=== PATIENT | female | born 1985 | race Caucasian/White ===

== ENCOUNTER → 2017-06-06 | Outpatient (CLI) | payer BC | END | disposition home or self-care (01) | LOC: LABWHC1 11:41 | PROVIDERS: ATTEND Obstetrics & Gynecology | DX: O20.0 Threatened abortion (principal); Z3A.00 Weeks of gestation of pregnancy not specified | CPT/HCPCS: 36415; 84702; 86850; 86900; 86901 ==

== ENCOUNTER → 2017-06-08 | Outpatient (CLI) | payer BC | LOC: LABWHC1 09:04 | PROVIDERS: ATTEND Obstetrics & Gynecology | DX: O20.0 Threatened abortion (principal) | CPT/HCPCS: 36415; 84702 ==

== ENCOUNTER 2019-09-19 05:56 | Inpatient (IN) | payer BC ==
[2019-09-19] MEDS ORDERED: METHYLERGONOVINE 0.2 MG/ML 1 ML AMP IM PRN (06:17)
[2019-09-19] MEDS ORDERED: LIDOCAINE 0.5% (PF) 5 MG/ML (50 ML SDV) SQ PRN (06:17)
[2019-09-19] MEDS ORDERED: TERBUTALINE 1 MG/ML VIAL SQ PRN (06:17)
[2019-09-19] MEDS ORDERED: CARBOPROST TROMETHAMINE 250 MCG/ML 1 ML AMP IM PRN (06:17)
[2019-09-19] MEDS ORDERED: OXYTOCIN 10 UNIT/ML 1 ML VIAL IM PRN (06:17)
[2019-09-19 06:26] VITALS: RESP 16
[2019-09-19 06:28] LABS: Basophils % (A) 1 %; Eosinophils # (A) 0.2 k/uL (0-0.7); Eosinophils % (A) 3 %; HCT 34.4 % (34.0-46.0); HGB 11.5 gm/dL (11.4-16.0); Lymphocytes # (A) 1.6 k/uL (1.0-4.8); Lymphocytes % (A) 22 %; MCHC 33.5 g/dL (31.0-37.0); MCV 95.4 fL (80.0-100.0); Mean Platelet Volume 7.8; Monocytes # (A) 0.6 k/uL (0-1.0); Monocytes % (A) 9 %; Neutrophils # (A) 4.6 k/uL (1.3-7.7); Neutrophils % (A) 64 %; Platelet Count 239 k/uL (150-450); RDW 13.7 % (11.5-15.5); WBC 7.1 k/uL (3.8-10.6)
[2019-09-19] MEDS: LACTATED RINGERS 1,000 ML IV SCH ×2 (06:31→10:27)
[2019-09-19] MEDS: OXYTOCIN 30 UNITS/500 ML NS 30 UNIT in SALINE 1 500ML.BAG IV SCH (06:31)
--- NOTE | 2019-09-19 07:52 | P.HPOB ---
History of Present Illness H&P Date: 09/19/19 Chief Complaint: Here for induction of labor This is a 34-year-old white female 5 para 3013 EDC 09/26/2019 at 39 weeks gestation. Patient presents today for induction of labor with favorable multiparous cervix. Fetus is been active throughout the . She is having mild irregular contractions spontaneously upon admission. Past medical history is significant for superficial thrombosed phlebitis, ulcerative colitis. Past surgical history cholecystectomy, varicose vein stripping, colonoscopy, D and E for IUFD at 15-5/7 weeks in 2016. Current medications vitamins daily, rectal suppositories as needed. ALLERGIES include amoxicillin to which reports diarrhea and vomiting. Family history significant for congestive heart failure, diabetes, renal lithiasis, COPD, gout. Social history patient is , she is a church official at a local [employer], she is never been a smoker, she denies alcohol or drug use. Obstetric history significant for blood type O+, rubella status immune. VDRL testing, urine culture, hepatitis B surface antigen, HIV testing, gonorrhea and chlamydia cultures all negative. One-hour Glucola 114. [place] strep cultures negative. On exam this is a pleasant white female 5 foot 3 inches, 200 pounds, blood pressure 109/77. The general physical exam is within normal limits. Cervix is 3 cm dilated, 60% effaced, -2 station, vertex presentation, soft, anterior. Artificial amniorrhexis reveals clear fluid. heart rate is consistent with reactive NST with a baseline of 140. Impression: 39 week intrauterine , advanced maternal age, here for elective induction of labor with all signs reassuring. Plan: Continue close maternal and surveillance. Analgesic options reviewed with the patient. Anticipate normal spontaneous vaginal delivery. Oxytocin per hospital protocol. Review of Systems Please see dictation under HPI Constitutional: Reports as per HPI Past Medical History Past Medical History: Deep Vein Thrombosis (DVT) Additional Past Medical History / Comment(s): ulcerative colitis and IBS History of Any Multi-Drug Resistant Organisms: None Reported Past Surgical History: Cholecystectomy Additional Past Surgical History / Comment(s): D&E, vein stripping Past Anesthesia/Blood Transfusion Reactions: No Reported Reaction Past Psychological History: No Psychological Hx Reported Smoking Status: Never smoker Past Alcohol Use History: None Reported Past Drug Use History: None Reported - Past Family History Mother Family Medical History: No Reported History Medications and Allergies Home Medications Medication Instructions Recorded Confirmed Type Calcium Carbonate [Tums] 500 mg PO QID 01/31/18 09/19/19 History Magnesium Hydroxide [Milk of 400 mg PO DAILY PRN 01/31/18 09/19/19 History Magnesia] Mesalamine [Canasa] 1,000 mg RECTAL DAILY 01/31/18 09/19/19 History Pnv No.95/Ferrous Fum/Folic AC 1 each PO DAILY 01/31/18 09/19/19 History [ Multivitamin Tablet] Aspirin [Children's Aspirin] 81 mg PO DAILY 09/19/19 09/19/19 History Omeprazole 20 mg PO DAILY 09/19/19 09/19/19 History Allergies Allergy/AdvReac Type Severity Reaction Status Date / Time Penicillins AdvReac Severe Nausea & Verified 09/19/19 06:13 Vomiting & Diarrhea Exam Vital Signs Temp Pulse Resp BP Pulse Ox 09/19/19 06:12 97.8 F 84 16 109/77 98 Intake and Output 09/18/19 09/19/19 09/19/19 22:59 06:59 14:59 Other: Weight 90.718 kg See dictation under HPI Results Result Diagrams: 09/19/19 06:20 Abnormal Lab Results - Last 24 Hours (Table) 09/19/19 Range/Units 06:20 RBC 3.60 L (3.80-5.40) m/uL Assessment and Plan Assessment: 39 week intrauterine , advanced maternal age, here for elective induction of labor, all signs reassuring Plan: Oxytocin per hospital protocol. Close maternal and surveillance. Anticipate normal spontaneous vaginal delivery. Time with Patient: Less than 30
[2019-09-19] MEDS ORDERED: SODIUM CHLORIDE 0.9% 100 ML BAG ONE (09:43)
[2019-09-19] MEDS ORDERED: fentaNYL (PF) 50 MCG/ML 5 ML AMP ONE (09:43)
[2019-09-19] MEDS ORDERED: ROPIVACAINE 5MG/ML 20ML VIAL ONE (09:43)
[2019-09-19] MEDS ORDERED: SIMETHICONE 80 MG CHEWABLE PO PRN (14:33)
[2019-09-19] MEDS ORDERED: IBUPROFEN 600 MG TAB PO PRN (14:33)
[2019-09-19] MEDS ORDERED: LANOLIN CREAM 5 GM TUBE TOPICAL PRN (14:33)
[2019-09-19] MEDS ORDERED: BENZOCAINE/MENTHOL SPRAY 1 GM/SPRAY AEROSOL TOPICAL PRN (14:33)
[2019-09-19] MEDS ORDERED: ACETAMINOPHEN TAB 325 MG TAB PO PRN (14:33)
[2019-09-19] MEDS ORDERED: diphenhydrAMINE 50 MG/ML 1 ML VIAL IVP PRN ×2 (14:33)
[2019-09-19] MEDS ORDERED: diphenhydrAMINE 25 MG CAP PO PRN (14:33)
[2019-09-19] MEDS ORDERED: ZOLPIDEM 5 MG TAB PO PRN (14:33)
[2019-09-19] MEDS ORDERED: HYDROCORTISONE 2.5% RECTAL CREAM 30 GM TUBE RECTAL PRN (14:33)
[2019-09-19] MEDS ORDERED: diphenhydrAMINE 50 MG CAP PO PRN (14:33)
--- NOTE | 2019-09-19 14:33 | P.PROBDLV ---
Vaginal Delivery Note - . Vaginal Delivery Note: This is a 34-year-old white female 5 para 3013 EDC 09/25/2038 weeks gestation. Patient presented for induction with favorable multiparous cervix. Fetus been active throughout the . Group B strep cultures negative. Please see dictated history and physical for details. On admission artificial amniorrhexis revealed clear fluid. Oxytocin was started and titrated per hospital protocol. Patient requested epidural and this was placed without difficulty. heart tones were reassuring throughout the first and second stages. Patient became completely dilated at 1358 began the second stage of labor at that time. With excellent maternal expulsive efforts head delivered occiput anterior and restituted accordingly. There was no nuchal cord noted. The right or anterior shoulder was gently delivered from underneath the pubic symphysis at which time the oropharynx, nasopharynx, and external nares were bulb suctioned. Patient was officially delivered a liveborn female at 03/24/2003 hours. Umbilical cord was doubly clamped and ligated, she was handed to waiting nurses for evaluation where scores of 8 and 9 at one and 5 minutes respectively were given. The placenta delivered spontaneously, it was inspected and noted to be intact with trivascular cord at 1407 hrs. Uterus is massaged. Careful inspection of the cervix, vagina, perineum, periurethral, and perirectal areas revealed no lacerations and no defects. weighed 6 lbs. 14 oz. or 3125 g. Estimated blood loss 200 mL's. All sponge needle and enhancement counts are correct at the end of the procedure. Patient and her family are allowed to begin the bonding experience in the LDR.
[2019-09-19] MEDS ORDERED: OXYTOCIN 20 UNITS/1000 ML NS 1,000 ML IV SCH (14:45)
[2019-09-19] MEDS: SENNOSIDES-DOCUSATE SODIUM 1 EACH TAB PO SCH (20:44)
[2019-09-20 06:59] LABS: Basophils % (A) 1 %; Eosinophils # (A) 0.2 k/uL (0-0.7); Eosinophils % (A) 2 %; HCT 32.1 % (34.0-46.0); HGB 10.4 gm/dL (11.4-16.0); Lymphocytes # (A) 1.9 k/uL (1.0-4.8); Lymphocytes % (A) 21 %; MCH 30.7 pg (25.0-35.0); MCHC 32.3 g/dL (31.0-37.0); MCV 95.3 fL (80.0-100.0); Mean Platelet Volume 8.1; Monocytes # (A) 0.6 k/uL (0-1.0); Monocytes % (A) 7 %; Neutrophils # (A) 5.8 k/uL (1.3-7.7); Neutrophils % (A) 67 %; Platelet Count 196 k/uL (150-450); RBC 3.37 m/uL (3.80-5.40); RDW 13.7 % (11.5-15.5); WBC 8.7 k/uL (3.8-10.6)
--- NOTE | 2019-09-20 08:09 | P.DS ---
Providers Date of admission: 09/19/19 05:56 Attending physician: Judy Martin Doing well day #1 Primary care physician: Stated None This is a 34-year-old white female 5 para 3013 [facility] 09/26/2019 at 39 weeks gestation. Patient presented for induction for term , favorable multiparous cervix. unremarkable, group B strep cultures negative, rubella status immune. Please see dictated history and physical for details. Artificial amniorrhexis revealed clear fluid. Oxytocin was started and titrated per hospital protocol. She went on to swiftly deliver a liveborn female infant with scores of 8 and 9 at one and 5 minutes respectively. Infant weighed 6 lbs. 14 oz. or 3125 g. Estimated blood loss 200 mL's. No perineal lacerations were encountered. Please see dictated delivery note for details. This morning the patient is doing well. She is voiding, ambulate in, passing flatus without difficulty. [place] is doing well. Breasts are not engorged, perineal body is clean and dry. Fundus is firm, midline, symmetric, 18 week size. Patient is judged to be in excellent condition for discharge home. She will follow-up with me in the office in 6 weeks. I reminded her no intercourse, tampons or douching. She will use [id number] Advil or Aleve, or Motrin as needed for pain. She will call with any fevers shakes or chills, foul smelling or copious lochia, with the passage of large blood clots, with any pain not alleviated by [id number] products, or indeed with any concerns. Hospital Course: This is a 34-year-old white female 5 para 3013 [facility] 09/26/2019 at 39 weeks gestation. Patient presented for induction. [place] strep cultures negative, rubella status immune, blood type O+. Please see dictated history and physical for details. Artificial amniorrhexis revealed clear fluid. Epidural was placed per her request. She went on to swiftly deliver a liveborn female with scores of 8 and 9 at one and 5 minutes respectively. Infant weighed 6 lbs. 14 oz. or 3125 g. Estimated blood loss 200 mL's. No perineal lacerations were encountered. Please see dictated delivery note for details. This morning the patient and her are both doing well. The patient is voiding, ambulating, passing flatus without difficulty. Vital signs are stable and she is afebrile. Fundus is firm and in the midline, symmetric and 18 week size. Extremities are negative for edema. Patient is judged to be in excellent condition for discharge home. She will follow-up with me in the office in 6 weeks. She will use [id number] Advil or Aleve, or Motrin as needed for pain. She will call with any fevers shakes or chills, foul smelling or copious lochia, with the passage of large blood clots, with any pain not alleviated by [id number] products, or indeed with any concerns. Assessment: Doing well day #1 Patient Condition at Discharge: Good Plan - Discharge Summary Discharge Rx Participant: No New Discharge Prescriptions: No Action Calcium Carbonate [Tums] 500 mg PO QID Pnv No.95/Ferrous Fum/Folic AC [ Multivitamin Tablet] 1 each PO DAILY Mesalamine [Canasa] 1,000 mg RECTAL DAILY Magnesium Hydroxide [Milk of Magnesia] 400 mg PO DAILY PRN PRN Reason: Diarrhea Omeprazole 20 mg PO DAILY Aspirin [Children's Aspirin] 81 mg PO DAILY Discharge Medication List Calcium Carbonate [Tums] 500 mg PO QID 01/31/18 [History] Magnesium Hydroxide [Milk of Magnesia] 400 mg PO DAILY PRN 01/31/18 [History] Mesalamine [Canasa] 1,000 mg RECTAL DAILY 01/31/18 [History] Pnv No.95/Ferrous Fum/Folic AC [ Multivitamin Tablet] 1 each PO DAILY 01/31/18 [History] Aspirin [Children's Aspirin] 81 mg PO DAILY 09/19/19 [History] Omeprazole 20 mg PO DAILY 09/19/19 [History] Follow up Appointment(s)/Referral(s): Judy Martin MD [STAFF PHYSICIAN] - 6 Weeks Discharge Disposition: HOME SELF-CARE
[2019-09-20] MEDS: SENNOSIDES-DOCUSATE SODIUM 1 EACH TAB PO SCH (08:10)
[2019-09-20 08:44] VITALS: BP 95/79; PULSE 81; TEMP 98
[2019-09-20] MEDS: LACTATED RINGERS 1,000 ML IV SCH (08:45)
[2019-09-20] MEDS: OXYTOCIN 30 UNITS/500 ML NS 30 UNIT in SALINE 1 500ML.BAG IV SCH (08:45)
== END 2019-09-20 14:40 | disposition home or self-care (01) | DRG 807 ==
LOC: 4FBP 05:56
PROVIDERS: ADMIT Obstetrics & Gynecology; ATTEND Obstetrics & Gynecology
PROC: 10E0XZZ Delivery of Products of Conception, External Approach (ICD-10-PCS; principal; 2019-09-19)
PROC: 3E0R3BZ Introduction of Anesthetic Agent into Spinal Canal, Percutaneous Approach (ICD-10-PCS; 2019-09-19)
PROC: 3E033VJ Introduction of Other Hormone into Peripheral Vein, Percutaneous Approach (ICD-10-PCS; 2019-09-19)
PROC: 10907ZC Drainage of Amniotic Fluid, Therapeutic from Products of Conception, Via Natural or Artificial Opening (ICD-10-PCS; 2019-09-19)
DX: O99.62 Diseases of the digestive system complicating childbirth (principal); Z37.0 Single live birth; I83.90 Asymptomatic varicose veins of unspecified lower extremity; K58.9 Irritable bowel syndrome, unspecified; Z3A.39 39 weeks gestation of pregnancy; Z79.82 Long term (current) use of aspirin; Z79.899 Other long term (current) drug therapy; Z86.72 Personal history of thrombophlebitis; Z87.19 Personal history of other diseases of the digestive system; Z90.49 Acquired absence of other specified parts of digestive tract; Z87.59 Personal history of other complications of pregnancy, childbirth and the puerperium; Z88.0 Allergy status to penicillin; Z83.3 Family history of diabetes mellitus; Z82.5 Family history of asthma and other chronic lower respiratory diseases; Z82.49 Family history of ischemic heart disease and other diseases of the circulatory system; Z82.69 Family history of other diseases of the musculoskeletal system and connective tissue; Z84.1 Family history of disorders of kidney and ureter
CPT/HCPCS: 85025; 86850; 86900; 86901

== ENCOUNTER → 2021-06-01 | Outpatient (CLI) | payer BC, OTHER ==
--- NOTE | 2021-06-01 21:51 | MR ---
EXAMINATION TYPE: MR sacroiliac joints wo con DATE OF EXAM: 06/01/2021 COMPARISON: CT abdomen and pelvis December 18, 2015 HISTORY: M45.9 Ankylosing Spondylitis, Right Hip pain Standard multiplanar, multisequence MRI departmental protocol Multiplanar, multisequence images of the pelvis focusing on the sacroiliac joints were acquired witho ut contrast. FINDINGS: Sacroiliac joints remain symmetric and felt within normal limits. There is no suspicious os seous edema along the sacroiliac joints bilaterally. No significant asymmetry or large spurring is se en. No ankylosis is evident. Anteverted uterus is seen. Ovaries are symmetric and normal in size with scattered small follicles. N o free fluid in the pelvis. No suspicious bowel dilatation. IMPRESSION: No MRI evidence for acute sacroiliitis.
== END | disposition home or self-care (01) ==
LOC: RADMRIMAIN 11:11
PROVIDERS: ATTEND Nurse Practitioner Family
DX: M45.9 Ankylosing spondylitis of unspecified sites in spine (principal); M25.551 Pain in right hip
CPT/HCPCS: 72195